=== PATIENT | female | born 1995 | race African-American/Black ===

== ENCOUNTER 2021-07-06 09:44 | Emergency (ER) | payer OTHER ==
[~2021-07-06] VITALS: Ht 157.5 cm; Wt 86.2 kg
--- NOTE | ~2021-07-06 | EMS ---
[facility] [address] [place] [address] EMS Patient Care Report Name: CASSI MONTES Room #: DEP CAM Durbin#: [id number] Admission: 07/06/21 Attend Phys: Discharge: 07/06/21 Date of : [birth year] Report #: [id number] THIS REPORT FOR: //name// Report Transmitted: 07/07/2021 14:03 EMS Care Summary [place], [place]/[facility] Incident [id number] @ 07/06/2021 09:09 Incident [address] [place] [address] Patient CASSI MONTES Female, 25 Years 1995 Patient Address [address] [place], [place] [id number] Patient History None Reported, Patient Allergies Hydrocodone,Oxycodone, Patient Medications None Reported, Chief Complaint LEFT FOOT PAIN Disposition Transported No Lights/[place] Dispatch Reason Falls Transported To [facility] Narrative M41 DISPATCHED TO EMS CALL. PT WAS ON THE GROUND UPON ARRIVAL. CHIEF COMPLAINT WAS INJURY TO LEFT ANKLE FROM SLIPPING ON ICE. PT WAS SECURED TO STRETCHER AND CONSENTS TO BE TRANSPORTED TO HOSPITAL. DENIES KNECK AND BACK PAIN. JONE OHARA [facility] [address] [place] [address] EMS Patient Care Report Name: CASSI MONTES Room #: DEP ER Ramakrishna#: [id number] Admission: 07/06/21 Attend Phys: Discharge: 07/06/21 Date of : [birth year] Report #: [id number] OF CONCIOUSNESS. PT CARE WAS TRANSFERRED TO RN. Initial Vitals @09:30P: 138,SpO2: 36, @09:15P: 97,R: 20,BP: 150/66,Pain: 10/10,SpO2: 93, @09:22P: 76,R: 20,BP: 135/82,Pain: 10/10,GCS: 15,CO: 0,SpO2: 92,Revised Trauma: 12, Assessments @09:20MENTAL:Place Oriented,Time Oriented,Event Oriented,Person Oriented,SKIN:No Abnormalities,HEENT:Head/Face: No Abnormalities,Neck/Airway: No Abnormalities,LUNG SOUNDS:General: No Abnormalities,Left Upper: No Abnormalities,Right Upper: No Abnormalities,Left Lower: No Abnormalities,Right Lower: No Abnormalities,ABDOMEN:General: No Abnormalities,Left Upper: No Abnormalities,Right Upper: No Abnormalities,Left Lower: No Abnormalities,Right Lower: No Abnormalities,PELVIS//GI:No Abnormalities,EXTREMITIES:Left Leg: SPR,Capillary Refill: Right Upper: 3 Sec,Left Leg: Other,Left Arm: No Abnormalities,Right Arm: No Abnormalities,Right Leg: No Abnormalities,PULSE:Radial: 2+ Normal,NEURO:No Abnormalities,@09:24MENTAL:Event Oriented,Time Oriented,Person Oriented,Place Oriented,SKIN:No Abnormalities,HEENT:Head/Face: No Abnormalities,Neck/Airway: No Abnormalities,LUNG SOUNDS:General: No Abnormalities,Left Upper: No Abnormalities,Right Upper: No Abnormalities,Left Lower: No Abnormalities,Right Lower: No Abnormalities,ABDOMEN:General: No Abnormalities,Left Upper: No Abnormalities,Right Upper: No Abnormalities,Left Lower: No Abnormalities,Right Lower: No Abnormalities,PELVIS//GI:No Abnormalities,EXTREMITIES:Capillary Refill: Right Upper: < 2 Sec,Left Leg: Other,Left Arm: No Abnormalities,Right Arm: No Abnormalities,Right Leg: No Abnormalities,PULSE:Radial: 2+ Normal,NEURO:No Abnormalities, Impression Injury of Foot Procedures @09:13 BLS Assessment Response: Unchanged @09:18 Stretcher Response: Unchanged Timeline :07,Call Received 09:07,Dispatch Notified 09:09,Dispatched 09:09,En Route 09:10,On Scene 09:12,At Patient 09:13,BLS Assessment,Response: Unchanged [address] [place] [address] EMS Patient Care Report Name: CASSI MONTES Room #: DEP CAM Durbin#: [id number] Admission: 07/06/21 Attend Phys: Discharge: 07/06/21 Date of : [birth year] Report #: [id number] 09:15,BP: 150/66 M,PULSE: 97,RR: 20 R,SPO2: 93 Ox,ETCO2: ,BG: ,PAIN: 10,GCS: , 09:18,Stretcher,Response: Unchanged :,BP: 135/82 M,PULSE: 76,RR: 20 R,SPO2: 92 Ox,ETCO2: ,BG: ,PAIN: 10,GCS: 15, 09:23,Depart Scene 09:30,BP: / M,PULSE: 138,RR: R,SPO2: 36 Ox,ETCO2: ,BG: ,PAIN: ,GCS: , 09:33,At Destination 09:42,Call Closed Disclaimer v1.1 Copyright 2021 [employer] This EMS Care Summary contains data elements from the applicable legal record (which may be displayed differently). It is designed to provide pertinent information for the following purposes: continuity of care, clinical quality, and state data reporting. The complete legal record is available to ED staff and administrators of the receiving hospital in [employer]'s Patient Tracker. All data is provided "as is."
[2021-07-06 09:45] VITALS: BP 123/88
== END 2021-07-06 12:33 | disposition home or self-care (01) ==
LOC: ER 09:44
DX: M79.672 Pain in left foot (principal); Z88.8 Allergy status to other drugs, medicaments and biological substances; Z88.6 Allergy status to analgesic agent; W00.0XXA Fall on same level due to ice and snow, initial encounter; Y93.89 Activity, other specified; Y92.89 Other specified places as the place of occurrence of the external cause; Y99.8 Other external cause status